=== PATIENT | male | born 1990 | race American Indian/Alaskan Native ===

== ENCOUNTER 2017-07-20 00:28 | Emergency (ER) | payer SELFPAY ==
[2017-07-20] MEDS ORDERED: TYLENOL PO ONE (00:51)
[2017-07-20] MEDS ORDERED: TYLENOL ONE (00:53)
[2017-07-20] MEDS ORDERED: MORPHINE ONE (01:31)
[2017-07-20] MEDS ORDERED: ZOFRAN ONE (01:31)
[2017-07-20] MEDS ORDERED: ZOFRAN IM ONE (01:36)
[2017-07-20] MEDS ORDERED: MORPHINE IM ONE (01:36)
[2017-07-20 04:52] LABS: Basophils % (Auto) 0.2 % (0.0-1.8); Eosinophils # (Auto) 0.1 K/mm3 (0.0-0.4); Eosinophils % (Auto) 1.4 % (0.0-4.3); Hematocrit 47.1 % (35.5-45.6); Hemoglobin 15.7 gm/dl (11.8-15.2); Lymphocytes # (Auto) 1.8 K/mm3 (1.2-5.4); Lymphocytes % (Auto) 26.7 % (13.4-35.0); Mean Corpuscular HGB Conc 33 % (32-34); Mean Corpuscular Hemoglobin 29 pg (28-32); Mean Corpuscular Volume 86 fl (84-94); Monocytes # (Auto) 0.6 K/mm3 (0.0-0.8); Monocytes % (Auto) 8.2 % (0.0-7.3); Platelet Count 268 K/mm3 (140-440); Red Blood Count 5.51 M/mm3 (3.65-5.03); Red Cell Distribution Width 12.9 % (13.2-15.2)
[2017-07-20] MEDS ORDERED: ANTIBIOTIC OINT TP ONE (04:59)
[2017-07-20 05:07] LABS: Alanine Aminotransferase 11 units/L (7-56); Albumin 4.2 g/dL (3.9-5); BUN/Creatinine Ratio 9; Blood Urea Nitrogen 8 mg/dL (9-20); Calcium 9.1 mg/dL (8.4-10.2); Hemolysis Index 22
--- NOTE | 2017-07-20 05:11 | Emergency Department Report ---
Burn HPI - History Stated Complaint: BURN LEFT HAND,LEG Chief Complaint: Burn/Smoke Inhalation Time Seen by Provider: 07/20/17 03:31 Duration of Burn: 1 Day Burn Location: Head (finger tips on left hand), Legs (left thigh) Burn Etiology: Accidental Pain: Moderate Tetanus Status: Not up to Date Symptoms:: Yes Blistering (blistering to left thigh), Yes Able to Tolerate Fluids, No Malaise, No Myalgias, No Fever, No Vomiting Other History: This is a 27 y.o. male presents with grease ryan to left fingertips and left thigh. He was cooking and attempt pour grease from the deep fryer into a cup and his right hand slid off the sharona. The grease fell tword the left side of body, burning the fingertips of the left hand and anterior thigh. He reports pain as 10/10 on pain scale. He didn't put anything on it prior to coming in. Denies numbness and tingling. - Home Meds and Allergies Home Medications: Previous Rx's Medication Instructions Recorded Last Taken Type Bacitracin Zinc [Antibiotic] 28.4 gm TP BID #1 oint...g. 07/20/17 Unknown Rx Allergies/Adverse Reactions: Allergies Allergy/AdvReac Type Severity Reaction Status Date / Time No Known Allergies Allergy Verified 07/20/17 00:43 ED Review of Systems ROS: Stated complaint: BURN LEFT HAND,LEG Other details as noted in HPI Constitutional: denies: chills, fever Respiratory: denies: cough, shortness of breath, wheezing Cardiovascular: denies: chest pain, palpitations Gastrointestinal: denies: abdominal pain, nausea, diarrhea Skin: lesions (blisters to left thigh), other (redness, pain, to fingertips on left hand) Neurological: denies: headache, weakness, paresthesias ED Past Medical Hx - Past Medical History Previous Medical History?: Yes Additional medical history: bronchitis - Surgical History Past Surgical History?: No - Social History Smoking Status: Never Smoker Substance Use Type: Alcohol - Medications Home Medications: Home Medications Medication Instructions Recorded Confirmed Last Taken Type Bacitracin Zinc [Antibiotic] 28.4 gm TP BID #1 oint...g. 07/20/17 Unknown Rx Exam - Exam General: Vital signs noted. No distress. Alert and acting appropriately. HEENT: Yes Moist Mucous Membranes, No Conjuctival Injection, No Corneal Edema Skin: Yes Erythroderma (1st through 5th distal phalanx of left hand, tender, no blisters), Yes Blistering (multiple bulla to superfical area or left leg from groin to above knee, painful), Yes Tenderness, No Edema Exam: Yes Normal Heart Sounds, No Respiratory Distress, No Sensory Deficits, No Musculoskeletal Pain Exam: Areas of eythema to bilateral distal phalanx that measure 1 cm. The ryan are not circumferential, no bulla, he can extend fingers freely and move them, intact sensation with good capillary refill, & swelling is mild. There are areas of eythema, multiple bulla on LLE from groin to above knee, painful to touch, and mild swelling. ED Course Vital Signs 07/20/17 07/20/17 00:35 00:40 Temperature 98.2 F 98.1 F Pulse Rate 109 H 110 H Respiratory 18 18 Rate Blood Pressure 153/106 153/106 O2 Sat by Pulse 98 99 Oximetry ED Medical Decision Making - Lab Data Result diagrams: 07/20/17 04:35 07/20/17 04:35 - Medical Decision Making This is a 27 y.o. male presents with ryan to left fingertips and left thigh from cookin oil. He was cooking in the deep fryer and tried to pour left over oil into a cup. The handles where greasy and his right hand slipped off the handle. The grease spilled on the tips of left finger and LLE from groin to above the knee. Denies numbness and tingling. CBC, CMP, UA Patient given zofran, morphine, and acetaminophan in ER for pain. Physical exam findings of first degree ryan to left distal phalanx and second degree ryan to LLE. Cleaned with NS and gauze. Applied bacitracin and nonadherent vaseline gauze dressing. Tetanus immunization administered in ER. Instructed to use bacitracin to 2nd degree blisters. Informed it will take 7 days to heal first degree wounds and 14-21 days to heal second degree wounds. Follow up with PCP in 2-3 days to reassess. Critical care attestation.: If time is entered above; I have spent that time in minutes in the direct care of this critically ill patient, excluding procedure time. ED Disposition Clinical Impression: First degree burn of finger of left hand including thumb Qualifiers: Encounter type: initial encounter Qualified Code(s): T23.142A - Burn of first degree of multiple left fingers (nail), including thumb, initial encounter Second degree burn of left thigh Qualifiers: Encounter type: initial encounter Qualified Code(s): T24.212A - Burn of second degree of left thigh, initial encounter Disposition: TO HOME OR SELFCARE Is pt being admited?: No Does the pt Need Aspirin: No Condition: Stable Instructions: Superficial Burn (ED), Partial Thickness Burn (ED) Additional Instructions: Apply bacitracin to 2nd degree blisters on thigh daily. It will take 7 days to heal first degree wounds and 14-21 days to heal second degree wounds. Follow up with Primary Care Provider in 2-3 days to evaluate healing process. Prescriptions: Bacitracin Zinc [Antibiotic] 28.4 gm TP BID #1 oint...g. Referrals: AR CAMARENA MD [Primary Care Provider] - 3-5 Days Forms: Accompanied Note Time of Disposition: 05:41 Print Language: CZECH
[2017-07-20] MEDS ORDERED: BOOSTRIX IM ONE (05:12)
[2017-07-20 06:35] LABS: Bilirubin,Urine NEG (Negative); Blood,Urine NEG (Negative); Color,Urine Yellow (Yellow); Mucus,Urine 3+ /HPF; Nitrite,Urine NEG (Negative)
[2017-07-20 07:05] VITALS: BP 170/99
== END 2017-07-20 06:30 | disposition home or self-care (01) ==
LOC: ED 00:28
DX: T23.142A Burn of first degree of multiple left fingers (nail), including thumb, initial encounter (principal); X08.8XXA Exposure to other specified smoke, fire and flames, initial encounter; Y93.89 Activity, other specified; Y92.89 Other specified places as the place of occurrence of the external cause; Y99.8 Other external cause status
CPT/HCPCS: 36415; 80053; 81001; 85025; 90471; 90715; 96372; 99283; J2270; J2405

== ENCOUNTER 2017-08-11 03:09 | Emergency (ER) | payer SELFPAY ==
[2017-08-11] MEDS ORDERED: DUONEB *Not for PRN Use IH ONE ×3 (05:31→12:24)
--- NOTE | 2017-08-11 06:14 | XRay Report ---
FINAL REPORT EXAM: XR CHEST ROUTINE 2V HISTORY: cough TECHNIQUE: PA and lateral chest radiographs PRIORS: None. FINDINGS: No mediastinal shift. Cardiac silhouette is not enlarged. No pneumothorax, effusion, or focal pulmonary opacity. No acute skeletal finding. IMPRESSION: No focal pulmonary opacity.
[2017-08-11] MEDS ORDERED: TESSALON PERLES PO ONE (11:59)
[2017-08-11] MEDS ORDERED: MOTRIN PO ONE (12:00)
--- NOTE | 2017-08-11 12:29 | Emergency Department Report ---
- General Chief Complaint: Adult Asthma Stated Complaint: URI SX Time Seen by Provider: 08/11/17 11:59 Source: patient Mode of arrival: Ambulatory Limitations: No Limitations - History of Present Illness Initial Comments: This is a 27-year-old male nontoxic, well nourished in appearance, no acute signs of distress presents to the ED with c/o of productive cough, rhinorrhea, and nasal congestion x 1 day. Patient also stated has wheezing started 1 day ago. Patient stated has history of asthma. Patient describes productive cough as yellow mucus production. Patient denies any sick contact. Patient denies any recent travels, long car rides, or recent hospital stays. Patient denies calf pain or calf tenderness. Patient denies drooling or hoarseness. Denies any hemoptysis. Patient denies chest pain, shortness of breath, fever, chills, nausea, vomiting, headache, stiff neck, numbness, tingling. Patient denies any drug allergies. PMH includes asthma and HTN. MD Complaint: cough, rhinorrhea, nasal congestion, other (wheezing) - Related Data Previous Rx's Medication Instructions Recorded Last Taken Type Bacitracin Zinc [Antibiotic] 28.4 gm TP BID #1 oint...g. 07/20/17 Unknown Rx ALBUTEROL Inhaler [ProAir HFA 2 puff IH QID PRN #1 inhalation 08/11/17 Unknown Rx Inhaler] Azithromycin [Zithromax Z-ALEXSANDER] 250 mg PO DAILY #6 tablet 08/11/17 Unknown Rx Oseltamivir [Tamiflu] 75 mg PO BID #14 cap 08/11/17 Unknown Rx predniSONE [Deltasone] 40 mg PO QDAY #5 tab 08/11/17 Unknown Rx Allergies Allergy/AdvReac Type Severity Reaction Status Date / Time No Known Allergies Allergy Verified 07/20/17 00:43 ED Review of Systems ROS: Stated complaint: URI SX Other details as noted in HPI Constitutional: denies: chills, fever Eyes: denies: eye pain, eye discharge, vision change ENT: denies: ear pain, throat pain Respiratory: cough, wheezing. denies: shortness of breath Cardiovascular: denies: chest pain, palpitations Endocrine: no symptoms reported Gastrointestinal: denies: abdominal pain, nausea, diarrhea Genitourinary: denies: urgency, dysuria Musculoskeletal: denies: back pain, joint swelling, arthralgia Skin: denies: rash, lesions Neurological: denies: headache, weakness, paresthesias Psychiatric: denies: anxiety, depression Hematological/Lymphatic: denies: easy bleeding, easy bruising ED Past Medical Hx - Past Medical History Hx Hypertension: Yes Hx Asthma: Yes Additional medical history: bronchitis, Obesity, - Surgical History Past Surgical History?: No - Social History Smoking Status: Never Smoker Substance Use Type: None - Medications Home Medications: Home Medications Medication Instructions Recorded Confirmed Last Taken Type Bacitracin Zinc [Antibiotic] 28.4 gm TP BID #1 oint...g. 07/20/17 Unknown Rx ALBUTEROL Inhaler [ProAir HFA 2 puff IH QID PRN #1 inhalation 08/11/17 Unknown Rx Inhaler] Azithromycin [Zithromax Z-ALEXSANDER] 250 mg PO DAILY #6 tablet 08/11/17 Unknown Rx Oseltamivir [Tamiflu] 75 mg PO BID #14 cap 08/11/17 Unknown Rx predniSONE [Deltasone] 40 mg PO QDAY #5 tab 08/11/17 Unknown Rx ED Physical Exam - General Limitations: No Limitations General appearance: alert, in no apparent distress - Head Head exam: Present: atraumatic, normocephalic - Eye Eye exam: Present: normal appearance, PERRL, EOMI Pupils: Present: normal accommodation - ENT ENT exam: Present: normal exam, normal orophraynx, mucous membranes moist, TM's normal bilaterally, normal external ear exam - Neck Neck exam: Present: normal inspection, full ROM. Absent: tenderness, meningismus, lymphadenopathy, thyromegaly - Respiratory Respiratory exam: Present: normal lung sounds bilaterally, wheezes (bilateral upper and lower lobes). Absent: respiratory distress, rales, rhonchi, stridor, chest wall tenderness, accessory muscle use, decreased breath sounds, prolonged expiratory - Cardiovascular Cardiovascular Exam: Present: regular rate, normal rhythm, normal heart sounds. Absent: bradycardia, tachycardia, irregular rhythm, systolic murmur, diastolic murmur, rubs, gallop - GI/Abdominal GI/Abdominal exam: Present: soft, normal bowel sounds. Absent: distended, tenderness, guarding, rebound, rigid, diminished bowel sounds - Rectal Rectal exam: Present: deferred - Extremities Exam Extremities exam: Present: normal inspection, full ROM, normal capillary refill. Absent: tenderness, pedal edema, joint swelling, calf tenderness - Back Exam Back exam: Present: normal inspection, full ROM. Absent: tenderness, CVA tenderness (R), CVA tenderness (L), muscle spasm, paraspinal tenderness, vertebral tenderness, rash noted - Neurological Exam Neurological exam: Present: alert, oriented X3, CN II-XII intact, normal gait, reflexes normal - Psychiatric Psychiatric exam: Present: normal affect, normal mood - Skin Skin exam: Present: warm, dry, intact, normal color. Absent: rash ED Course Vital Signs 08/11/17 08/11/17 08/11/17 05:24 05:45 05:54 Temperature 98.5 F Pulse Rate 88 Pulse Rate [ 88 92 H Anterior Bilateral Throughout] Respiratory 20 Rate Respiratory 16 16 Rate [Anterior Bilateral Throughout] Blood Pressure 162/96 O2 Sat by Pulse 98 Oximetry 08/11/17 08/11/17 11:58 12:20 Temperature 98.2 F Pulse Rate 77 Pulse Rate [ Anterior Bilateral Throughout] Respiratory 16 22 Rate Respiratory Rate [Anterior Bilateral Throughout] Blood Pressure 144/85 O2 Sat by Pulse 98 Oximetry - Reevaluation(s) Reevaluation #1: 08/11/17 12:33 Patient is speaking in full sentences with no signs of distress noted. ED Medical Decision Making - Medical Decision Making This is a 27-year-old male that presents with asthma exacerbation and upper respiratory infection. Chest xray has been obtained and dictated by radiologist within normal limits. Patient notified of x-ray results with no question or by the patient. Negative influenza swab. Vital signs stable prior to discharge. Patient is afebrile. Normal heart rate. Patient received DuoNeb x2 and Solu-Medrol which symptoms of wheezing has subsided and patient states he feels much better. I'll treat patient empirically with Tamiflu and azith due to symptoms worsening and symptoms influenza at discharge. Patient was orally rehydrated in the ER and patient tolerated well with no signs of nausea or vomiting. Patient was instructed Follow-up with a primary care doctor in 3-5 days or if symptoms worsen and continue return to emergency room as soon as possible. At time time of discharge, the patient does not seem toxic or ill in appearance. No acute signs of distress noted. Patient agrees to discharge treatment plan of care. No further questions noted by the patient. This chart is dictated with using [employer]ation [employer] Critical care attestation.: If time is entered above; I have spent that time in minutes in the direct care of this critically ill patient, excluding procedure time. ED Disposition Clinical Impression: Asthma exacerbation Qualifiers: Asthma severity: mild Asthma persistence: unspecified Qualified Code(s): J45.901 - Unspecified asthma with (acute) exacerbation Upper respiratory infection Qualifiers: URI type: unspecified URI Qualified Code(s): J06.9 - Acute upper respiratory infection, unspecified Disposition: DC- TO HOME OR SELFCARE Is pt being admited?: No Does the pt Need Aspirin: No Condition: Stable Instructions: Albuterol (By breathing), Prednisone (By mouth), Azithromycin ( By mouth), Oseltamivir (By mouth), Asthma (ED), Upper Respiratory Infection (ED) Additional Instructions: Follow-up with a primary care doctor in 3-5 days or if symptoms worsen and continue return to emergency room as soon as possible. Increase rest, hydration, and take Motrin fever episodes as prescribed. Prescriptions: ALBUTEROL Inhaler [ProAir HFA Inhaler] 2 puff IH QID PRN #1 inhalation PRN Reason: Shortness Of Breath Azithromycin [Zithromax Z-ALEXSANDER] 250 mg PO DAILY #6 tablet Oseltamivir [Tamiflu] 75 mg PO BID #14 cap predniSONE [Deltasone] 40 mg PO QDAY #5 tab Referrals: AR CAMARENA MD [Primary Care Provider] - 3-5 Days PRIMARY CARE, [Referring] - 3-5 Days [facility] [Outside] - 3-5 Days [facility] [Outside] - 3-5 Days Forms: Work/School Release Form(ED)
[2017-08-11 15:06] VITALS: BP 130/84
== END 2017-08-11 15:00 | disposition home or self-care (01) ==
LOC: ED 03:09
DX: J45.901 Unspecified asthma with (acute) exacerbation (principal); J06.9 Acute upper respiratory infection, unspecified; I10 Essential (primary) hypertension
CPT/HCPCS: 71046; 87400; 94640; 96372; 99284; J2930